=== PATIENT | male | born 1955 | race Caucasian/White ===

== ENCOUNTER → 2017-09-28 | Outpatient (CLI) | payer BC ==
[2017-09-28 09:26] LABS: ALT 39 U/L (21-72); AST 26 U/L (17-59); Cholesterol 261 mg/dL (<200); HDL Cholesterol 46 mg/dL (40-60); LDL Cholesterol,Calculated 159 mg/dL (0-99); Triglycerides 282 mg/dL (<150)
== END | disposition home or self-care (01) ==
LOC: LABWHC1 08:30
PROVIDERS: ATTEND Advanced Practice Dental Therapist
DX: E78.2 Mixed hyperlipidemia (principal)
CPT/HCPCS: 36415; 80061; 84450; 84460

== ENCOUNTER → 2017-10-16 | Outpatient (CLI) | payer BC ==
--- NOTE | 2017-10-16 19:51 | CT ---
EXAMINATION TYPE: CT abdomen pelvis w con DATE OF EXAM: 10/16/2017 COMPARISON: NONE HISTORY: Right inguinal pain x 2 months. History of hernia. CT DLP: 1717 mGycm Automated exposure control for dose reduction was used. CONTRAST: CT scan of the abdomen pelvis is performed with IV Contrast, patient injected with 100 mL of Isovue M 300. FINDINGS- LUNG BASES-linear changes at the lung bases suggestive of atelectasis. Mild cardiomegaly. LIVER/GB- No gross abnormality is appreciated. PANCREAS- No gross abnormality is seen. SPLEEN- No gross abnormality is seen. ADRENALS- No gross abnormality is seen. KIDNEYS/BLADDER- no hydronephrosis or nephrolithiasis. Bilateral parapelvic simple renal cysts are no kolby. There is a cyst involving the upper pole left kidney which does contain a calcification. Could r epresent a calyceal diverticulum or Bosniak classification 2 cyst. Previous insult and cortical thinn ing in the region noted therefore favor a cyst.. Additional 5 mm or less hypodense lesion lower pole right kidney too small to characterize but also likely related to simple cyst BOWEL- no bowel dilatation. Normal appendix. LYMPH NODES- No greater than 1cm abdominal or pelvic lymph nodes are appreciated. OSSEOUS STRUCTURES-multilevel degenerative disc disease and hypertrophic changes with bilateral spond ylolysis of L4 and grade 1 anterolisthesis.. OTHER- fat-containing inguinal hernias noted bilaterally. Mild induration noted on the right. Prostate calcification seen and there are phleboliths in the pelvis. IMPRESSION- 1. Fat-containing inguinal hernias bilaterally with very mild induration of the fat of the right may represent mild inflammatory change. No bowel contained within the hernia sac. Finding nonspecific cor relate clinically. 2. left renal pelvic cysts with additional cyst involving the upper pole the left kidney containing c alcification compatible with a Bosniak classification 2 cyst 3. Multilevel degenerative disc disease with disc bulging at L4-5 with bilateral spondylolysis of L4 resulting in canal stenosis. Correlate clinically to determine if this accounts for the patient's. Di sc bulging or protrusion of the spinal contributes to canal stenosis
== END | disposition home or self-care (01) ==
LOC: RADCTMAIN 16:51
PROVIDERS: ATTEND Surgery
DX: K40.20 Bilateral inguinal hernia, without obstruction or gangrene, not specified as recurrent (principal); N28.1 Cyst of kidney, acquired
CPT/HCPCS: 74177; Q9967

== ENCOUNTER 2017-10-17 09:59 | Day surgery (SDC) | payer BC ==
[2017-10-15 16:50] VITALS: BMI 29.9
[~2017-10-17 09:59] MED LIST: LACTATED RINGERS 1,000 ML IV SCH
[2017-10-17 11:29] VITALS: RESP 16; TEMP 96.9
[2017-10-17] MEDS ORDERED: LIDOCAINE 1% INJ 10MG/ML (20 ML MDV) ONE (11:48)
[2017-10-17] MEDS ORDERED: PROPOFOL 10 MG/ML 20 ML VIAL IV ONE (11:48)
--- NOTE | 2017-10-17 12:15 | P.PCN ---
Date of Procedure: 10/17/17 Procedure(s) Performed: Procedure: Total colonoscopy. Preoperative diagnosis: Screening for neoplasia. Postoperative diagnosis: Exam within normal limits. Preparation: HalfLytely prep. Sedation: Was provided by anesthesia. Brief clinical history: The patient is 62-year-old male with family history of neoplasia in the form of neoplastic polyps in his dad. He has no abdominal complaints, bleeding or anemia. Last colonoscopy was in September 2012. Procedure: With the patient on his left lateral decubitus position and after informed consent and adequate sedation, the perianal area was inspected and it did not show any fissures or fistulas. There were no masses felt on digital rectal examination. The Olympus CFQ 160L video colonoscope was then inserted in the rectum and the usual fashion and advanced to the cecum. The mucosa appeared healthy. No polyps or tumors were seen. I noted a very small sigmoid diverticular orifice or 2 with no evidence of acute diverticulitis or strictures. I also noted low-grade internal hemorrhoids without evidence of bleeding. The patient tolerated the procedure well. Plan: The patient was reassured. Discussed dietary measures and local care for hemorrhoids. He will follow up with you as planned and I recommended repeat exam in 5 years.
[2017-10-17 12:45] VITALS: BP 143/98; PULSE 55
== END 2017-10-17 13:00 | disposition home or self-care (01) ==
LOC: ORWHC2ENDO 09:59
DX: Z12.11 Encounter for screening for malignant neoplasm of colon (principal); K57.30 Diverticulosis of large intestine without perforation or abscess without bleeding; Z83.71 Family history of colonic polyps; K64.8 Other hemorrhoids; Z88.0 Allergy status to penicillin; I10 Essential (primary) hypertension; E78.5 Hyperlipidemia, unspecified; Z79.899 Other long term (current) drug therapy
CPT/HCPCS: 45378; J2001; J2704

== ENCOUNTER 2017-11-05 10:59 | Day surgery (SDC) | payer BC ==
[2017-10-31 14:27] VITALS: BMI 29.9
[~2017-11-05 10:59] MED LIST changes: +ALPRAZolam 0.25 MG TAB PO PRN; +ALPRAZolam 0.5 MG TAB PO PRN; +ASPIRIN 325 MG TAB PO STA; -LACTATED RINGERS 1,000 ML IV SCH; +NITROGLYCERIN SL TABS 0.4 MG TAB SUBLINGUAL PRN; +SODIUM CHLORIDE 0.9% 1,000 ML in EMPTY BAG 1 BAG IV ONE
[2017-11-05 11:49] VITALS: RESP 16
[2017-11-05 11:56] LABS: Basophils % (A) 1 %; Eosinophils # (A) 0.2 k/uL (0-0.7); Eosinophils % (A) 3 %; HCT 42.7 % (39.0-53.0); HGB 14.5 gm/dL (13.0-17.5); Lymphocytes % (A) 17 %; MCH 29.4 pg (25.0-35.0); MCV 86.3 fL (80.0-100.0); Mean Platelet Volume 8.3; Monocytes # (A) 0.3 k/uL (0-1.0); Monocytes % (A) 5 %; Neutrophils # (A) 4.3 k/uL (1.3-7.7); Neutrophils % (A) 73 %; Platelet Count 174 k/uL (150-450); RBC 4.96 m/uL (4.30-5.90); RDW 14.2 % (11.5-15.5); WBC 5.9 k/uL (3.8-10.6)
[2017-11-05 12:06] LABS: Anion Gap 14 mmol/L; Blood Urea Nitrogen 20 mg/dL (9-20); Calcium 9.9 mg/dL (8.4-10.2); Carbon Dioxide 23 mmol/L (22-30); Chloride 109 mmol/L (98-107); Glucose 98 mg/dL (74-99); Potassium 4.4 mmol/L (3.5-5.1); Sodium 146 mmol/L (137-145)
[2017-11-05] MEDS ORDERED: fentaNYL (PF) 50 MCG/ML 2 ML AMP IV ONE (12:32)
[2017-11-05] MEDS: MIDAZOLAM 2 MG/2 ML VIAL IVP ONE ×2 (12:32→12:39)
[2017-11-05] MEDS ORDERED: LIDOCAINE 2% INJ 20 MG/ML SQ ONE (12:38)
[2017-11-05] MEDS ORDERED: IOPAMIDOL-370 50ML BTL INJ ONE (12:52)
[2017-11-05] MEDS ORDERED: IOPAMIDOL-370 125ML BTL INJ ONE (12:52)
[2017-11-05] MEDS ORDERED: RX INFO: IV CONTRAST WAS GIVEN 1 EACH MISC MISCELLANE PRN (12:56)
[2017-11-05] MEDS ORDERED: CARISOPRODOL 350 MG TAB PO PRN (12:58)
[2017-11-05] MEDS ORDERED: NON-FORMULARY DRUG (Tadalafil [Cialis] 5 MG) PO PRN (12:58)
[2017-11-05] MEDS ORDERED: ETODOLAC 400 MG TAB PO PRN (12:58)
[2017-11-05] MEDS ORDERED: SODIUM CHLORIDE 0.9% 1,000 ML IV SCH (13:00)
[2017-11-05] MEDS ORDERED: SPIRONOLACTONE 25 MG TAB PO SCH (13:00)
[2017-11-05] MEDS ORDERED: amLODIPine 2.5 MG TAB PO SCH (17:30)
--- NOTE | 2017-11-05 17:40 | CC ---
CARDIAC CATHETERIZATION REPORT DATE OF SERVICE: 11/05/2017. HISTORY: Mr. Gabriel is a 62-year-old gentleman who had been having some pain in between the shoulder blades. Patient had a stress test which showed evidence of stress-induced ischemia. In view of that, the patient was recommended to have a cardiac catheterization for definitive diagnosis. PROCEDURE: Right groin was prepped and draped in the usual manner and the skin was infiltrated with 2% Xylocaine. The right femoral artery was entered using Seldinger technique. A #6- [place]man[place] sheath was placed in. Selective coronary angiography was then performed in multiple projections. The left ventricular pressures were obtained. Patient tolerated the procedure well. Sheath was removed and good hemostasis was achieved with the use of Angio-Seal. HEMODYNAMICS: Left ventricular end-diastolic pressure is 8 to 10 mmHg prior to angiography and no gradient is noted across the aortic valve. SELECTIVE CORONARY ANGIOGRAPHY: LEFT MAIN: Left main coronary artery is normal and patent. LAD is a good caliber blood vessel and gives rise to 2 good size good-sized diagonal branches. LAD: LAD and its branches are normal. There is some minimal calcification noted in the coronary artery. CIRCUMFLEX: Circumflex coronary artery gives rise to good size to good-sized obtuse marginal branch and is normal. RIGHT CORONARY: Right coronary artery is dominant in distribution, gives rise to the PDA branch. Right coronary artery and its branches are normal. LEFT VENTRICULOGRAM: Left ventriculography reveals normal left ventricular systolic function with ejection fraction of 55% to 60%. FINAL IMPRESSION: 1. This study reveals mild calcification in the coronary system. 2. The left anterior descending, circumflex and right coronary artery are normal. 3. Left ventricular systolic function is normal. RECOMMENDATIONS: Aggressive risk factor modifications. According to the patient, he has been tried on 5 different kinds of statins, may consider treatment with Zetia as an outpatient. SEDATION: Moderate sedation was used, sedation time was 17 minutes. MMODL / IJN: [id number] /
[2017-11-05 18:24] VITALS: PULSE 62
[2017-11-05 18:26] VITALS: BP 134/76
[2017-11-05] MEDS ORDERED: ZOLPIDEM 10 MG TAB PO SCH (21:00)
[2017-11-05] MEDS ORDERED: LISINOPRIL 20 MG PO SCH (21:00)
[2017-11-06] MEDS ORDERED: CARVEDILOL 6.25 MG TAB PO SCH (09:00)
== END 2017-11-05 18:28 | disposition home or self-care (01) ==
LOC: CATHCVL 10:59
PROVIDERS: ATTEND Internal Medicine Cardiovascular Disease
DX: I25.10 Atherosclerotic heart disease of native coronary artery without angina pectoris (principal); E78.5 Hyperlipidemia, unspecified; I73.9 Peripheral vascular disease, unspecified; I11.9 Hypertensive heart disease without heart failure; Z88.0 Allergy status to penicillin; Z88.8 Allergy status to other drugs, medicaments and biological substances; T50.995A Adverse effect of other drugs, medicaments and biological substances, initial encounter; Z79.82 Long term (current) use of aspirin; Z79.899 Other long term (current) drug therapy
CPT/HCPCS: 93458; 80048; 85025; C1760; C1894; C1769; J2001; J2250; J3010; Q9967 ×2

== ENCOUNTER → 2018-08-12 | Outpatient (CLI) | payer MEDICARE ==
[2018-08-12 10:52] LABS: Blood Urea Nitrogen 23 mg/dL (9-20)
--- NOTE | 2018-08-12 11:59 | CT ---
EXAMINATION TYPE: CT abdomen pelvis w con DATE OF EXAM: 08/12/2018 COMPARISON: CT abdomen pelvis October 16, 2017 HISTORY: Right inguinal pain. Hernia repair November 2017. CT DLP: 1583.2 mGycm, Automated Exposure Control for Dose Reduction was Utilized. CONTRAST: CT scan of the abdomen and pelvis is performed without oral but with with IV Contrast, patient inject ed with 100 mL of Isovue M300. FINDINGS: LUNG BASES: No significant abnormality is appreciated. LIVER/GB: Liver remains diffusely low dense relative to spleen suggesting diffuse fatty infiltration. PANCREAS: No significant abnormality is seen. SPLEEN: No significant abnormality is seen. ADRENALS: No significant abnormality is seen. KIDNEYS: Left kidney shows simple appearing parapelvic cysts centrally. There is redemonstration of 1 .9 cm cyst with calcification upper to midpole level laterally left kidney axial image 28 is not sign ificantly changed from prior study. BOWEL: Evaluation of bowel is suboptimal secondary to lack of enteric contrast. Stomach is poorly dis tended and thus suboptimally evaluated. There is no suspicious small or large bowel dilatation. Left- sided pelvic phleboliths are redemonstrated. PROSTATE/SEMINAL VESICLES: No gross abnormality seen. LYMPH NODES: No greater than 1cm abdominal or pelvic lymph nodes are appreciated. OSSEOUS STRUCTURES: Bilateral pars defects L4 level with grade 1 anterolisthesis of L4 on L5 and mode rate disc space narrowing with vacuum disc phenomenon L4-L5 and L5-S1 levels. Facet arthropathy lower lumbar levels is seen. OTHER: Right groin scar tissue redemonstrated. No recurrent right-sided hernia is seen. Small fat-con taining left inguinal hernia is stable. Mild calcified plaque of aorta extends into iliac branch vessels. IMPRESSION: Right groin scar tissue. No new right-sided groin hernia. No suspicious new finding seen to account for patient's symptoms of recurrent right groin pain.
== END | disposition home or self-care (01) ==
LOC: RADCTMAIN 10:20
PROVIDERS: ATTEND Surgery
DX: R10.31 Right lower quadrant pain (principal)
CPT/HCPCS: 82565; 84520; 74177; 36415; Q9967

== ENCOUNTER 2022-12-11 11:30 | Day surgery (SDC) | payer MEDICARE ==
[~2022-12-11 11:30] MED LIST changes: -ALPRAZolam 0.25 MG TAB PO PRN; -ALPRAZolam 0.5 MG TAB PO PRN; -ASPIRIN 325 MG TAB PO STA; +LACTATED RINGERS 1,000 ML IV SCH; +LIDOCAINE 1% (10MG/ML) FOR IV START INTRADERMA PRN; -NITROGLYCERIN SL TABS 0.4 MG TAB SUBLINGUAL PRN; -SODIUM CHLORIDE 0.9% 1,000 ML in EMPTY BAG 1 BAG IV ONE
[2022-12-11 12:14] VITALS: TEMP 97
[2022-12-11] MEDS ORDERED: LIDOCAINE 2% INJ 20 MG/ML (2 ML VIAL) ONE (13:00)
[2022-12-11] MEDS ORDERED: PROPOFOL 10 MG/ML 20 ML VIAL IV ONE (13:00)
--- NOTE | 2022-12-11 13:15 | P.PCN ---
Date of Procedure: 12/11/22 Procedure(s) Performed: BRIEF HISTORY: Patient is a 67-year-old pleasant white male scheduled for an elective colonoscopy as a part of screening for colon cancer. PROCEDURE PERFORMED: Colonoscopy with snare polypectomy. PREOPERATIVE DIAGNOSIS: Screening for colon cancer. IV sedation per Anesthesia. PROCEDURE: After informed consent was obtained, the patient, was brought into the endoscopy unit. IV sedation was administered by Anesthesia under continuous monitoring. Digital rectal examination was normal. Initially the Olympus CF-160 flexible video colonoscope was then inserted in the rectum, gradually advanced into the cecum without any difficulty. Careful examination was performed as the scope was gradually being withdrawn. Ileocecal valve and the appendiceal orifice were visualized and appeared normal. Prep was excellent. Mucosa of the cecum, ascending colon, appeared normal. In the hepatic flexure there was a 5 mm flat polyp removed by snare polypectomy. In the transverse colon there was a 7 mm polyp that was removed by cold snare polypectomy. Rest of the transverse colon, descending colon, sigmoid colon, and rectum appeared normal. Retroflexion was performed in the rectum and no lesions were seen. The patient tolerated the procedure well. IMPRESSION: 5 mm hepatic flexure polyp status post cold snare polypectomy 7 mm transverse colon polyp status post cold snare polypectomy Small internal hemorrhoids RECOMMENDATIONS: Findings of this examination were discussed with the patient as well as his family. He was advised to follow with the biopsy results. If the biopsy does adenoma he can have a repeat colonoscopy in 5 years.
[2022-12-11 13:26] VITALS: RESP 18
[2022-12-11 13:35] VITALS: BP 142/84; PULSE 49
== END 2022-12-11 13:53 | disposition home or self-care (01) ==
LOC: ORWHC2ENDO 11:30
PROVIDERS: ATTEND Internal Medicine Gastroenterology
DX: Z12.11 Encounter for screening for malignant neoplasm of colon (principal); D12.3 Benign neoplasm of transverse colon; I10 Essential (primary) hypertension; E78.5 Hyperlipidemia, unspecified; F41.9 Anxiety disorder, unspecified; Z88.0 Allergy status to penicillin; Z88.8 Allergy status to other drugs, medicaments and biological substances; Z79.899 Other long term (current) drug therapy
CPT/HCPCS: 88305; 45385; J2704; J2001

== ENCOUNTER → 2024-08-17 | Outpatient (CLI) | payer MEDICARE ==
[2024-08-17 16:46] LABS: T4, Free (Free Thyroxine) 1.07 ng/dL (0.80-1.80)
== END | disposition home or self-care (01) ==
LOC: LABWHC1 10:22
PROVIDERS: ATTEND Internal Medicine Clinical Cardiac Electrophysiology
DX: I47.10 Supraventricular tachycardia, unspecified (principal); I49.3 Ventricular premature depolarization
CPT/HCPCS: 36415; 84439; 84443